=== PATIENT | male | born 1990 | race African-American/Black ===

== ENCOUNTER 2020-01-19 10:30 | Inpatient (IN) | payer MEDICAID ==
[~2020-01-19] VITALS: Ht 162.6 cm; Wt 69.9 kg
[2020-01-19] MEDS ORDERED: PIPERACILLIN/TAZ 3.375G PREMIX 50 ML IV ONE (14:00)
[2020-01-19] MEDS ORDERED: SODIUM CHLORIDE 0.9% 1000ML BAG (SEPSIS BOLUS) IV ONE (14:00)
[2020-01-19] MEDS ORDERED: VANCOMYCIN 1 G PREMIX 200 ML IV SCH ×2 (14:00→22:30)
[2020-01-19] MEDS ORDERED: MORPHINE SULFATE 4 MG/ML CPJ (NOT FOR IM USE) IV STA (14:00)
[2020-01-19] MEDS ORDERED: ONDANSETRON HCL 4MG/2ML INJ IV STA (14:00)
[2020-01-19 14:17] LABS: HEMATOCRIT. 24.6 % (42.0-52.0); HEMOGLOBIN. 8.2 g/dL (14.0-18.0); MEAN CORPUSCULAR HEMOGLOBIN 25.4 pg (28.0-32.0); MEAN CORPUSCULAR VOLUME 76.3 fL (80.0-94.0); MEAN PLATELET VOLUME 7.5 fl (7.4-10.4); PLATELET 540 x1000/uL (130-400); RED BLOOD CELL COUNT 3.22 mill/uL (4.7-6.1); RED CELL DISTRIBUTION WIDTH 23.4 % (11.6-14.6)
[2020-01-19 14:21] LABS: CHLORIDE 100 mEq/L (98-107)
[2020-01-19 14:25] LABS: ETHANOL BLOOD < 10 mg/dL
[2020-01-19 14:29] LABS: INR 1.4; PROTHROMBIN TIME 14.7 sec (9.6-11.0)
[2020-01-19 14:47] LABS: PLATELET ESTIMATE INCREASED
[2020-01-19 21:10] LABS: CLARITY URINE CLOUDY (CLEAR); COLOR URINE DARK YELLOW (YELLOW); KETONES URINE 1+ (NEGATIVE); LEUKOCYTE ESTERASE URINE 1+ (NEGATIVE); NITRITE URINE POSITIVE (NEGATIVE); OCCULT BLOOD URINE 3+ (NEGATIVE); PROTEIN URINE 1+ (NEGATIVE); SPECIFIC GRAVITY URINE 1.024 (1.005-1.030)
[2020-01-19 21:38] LABS: *AMPHETAMINES SCREEN URINE NEGATIVE (NEGATIVE); *BARBITURATES SCREEN URINE NEGATIVE (NEGATIVE); *BENZODIAZEPINES SCREEN URINE NEGATIVE (NEGATIVE); *COCAINE SCREEN URINE NEGATIVE (NEGATIVE); METHADONE URINE SCREEN NEGATIVE (NEGATIVE); OPIATES URINE SCREEN PRESUMTIVE POSITIVE (NEGATIVE); PHENCYCLIDINE URINE SCREEN NEGATIVE (NEGATIVE)
[2020-01-19 21:39] LABS: CANNABINOID URINE SCREEN PRESUMTIVE POSITIVE (NEGATIVE)
[2020-01-19 21:40] VITALS: BP 105/53
[2020-01-19 22:00] VITALS: BP 105/53
[2020-01-19] MEDS ORDERED: ONDANSETRON HCL 4MG/2ML INJ IV PRN (22:30)
[2020-01-19] MEDS ORDERED: ZOLPIDEM TARTRATE 5MG TABLET PO PRN (22:30)
[2020-01-19] MEDS ORDERED: SENNOSIDES 8.6MG TABLET PO PRN (22:30)
[2020-01-19] MEDS ORDERED: CLONIDINE 0.1MG TABLET PO PRN (22:30)
[2020-01-19] MEDS ORDERED: DIPHENHYDRAMINE 50MG/ML VIAL IV PRN (22:30)
[2020-01-19] MEDS ORDERED: ACETAMINOPHEN 325MG TABLET PO PRN ×2 (22:30)
[2020-01-19] MEDS ORDERED: MAGNESIUM/ALUMINUM HYDROXIDE/SIMETHICONE 30ML UDC PO PRN (22:30)
[2020-01-20] MEDS ORDERED: VANCOMYCIN 1250MG in DEXTROSE 5% WATER 250ML IV SCH ×2
[2020-01-20 04:00] VITALS: BP 92/44
[2020-01-20] MEDS: BACLOFEN 10MG TABLET PO SCH ×4 (05:40→21:38)
[2020-01-20 08:00] VITALS: BP 94/40
[2020-01-20] MEDS: ENOXAPARIN 40MG/0.4ML SYR SUBCUT SCH (09:00)
[2020-01-20] MEDS: PIPERACILLIN/TAZOBACTAM 3.375 G in DEXT 5% WATER 100 ML IV SCH ×2 (11:17→17:42)
[2020-01-20 12:00] VITALS: BP 87/45
[2020-01-20] MEDS: SODIUM CHLORIDE 0.9% INJ 3ML FLUSH IVF SCH ×2 (14:00→21:11)
[2020-01-20 16:00] VITALS: BP 84/43
[2020-01-20 20:00] VITALS: BP 102/42
[2020-01-20] MEDS: MEROPENEM 1,000 MG in SODIUM CHLORIDE 0.9% 100 ML IV SCH (22:53)
[2020-01-21] VITALS: BP 102/42
[2020-01-21 04:00] VITALS: BP 102/42
[2020-01-21] MEDS: MEROPENEM 1,000 MG in SODIUM CHLORIDE 0.9% 100 ML IV SCH ×3 (06:00→22:00)
[2020-01-21] MEDS: BACLOFEN 10MG TABLET PO SCH ×3 (06:00→23:48)
[2020-01-21] MEDS: SODIUM CHLORIDE 0.9% INJ 3ML FLUSH IVF SCH ×3 (07:01→22:00)
[2020-01-21] MEDS: ENOXAPARIN 40MG/0.4ML SYR SUBCUT SCH (09:00)
[2020-01-21 16:00] VITALS: BP 90/40
[2020-01-21 20:00] VITALS: BP 95/43
[2020-01-21] MEDS: HYDROCODONE/ACETAMINOPHEN 5/325MG TABLET PO PRN (23:48)
[2020-01-22] MEDS: MEROPENEM 1,000 MG in SODIUM CHLORIDE 0.9% 100 ML IV SCH ×2 (06:00→14:00)
[2020-01-22] MEDS: BACLOFEN 10MG TABLET PO SCH ×3 (06:00→21:54)
[2020-01-22] MEDS: SODIUM CHLORIDE 0.9% INJ 3ML FLUSH IVF SCH ×3 (06:00→22:00)
[2020-01-22] MEDS: ENOXAPARIN 40MG/0.4ML SYR SUBCUT SCH (09:00)
[2020-01-22] MEDS ORDERED: LEVOFLOXACIN 500MG TABLET PO NR (16:00)
[2020-01-22 20:00] VITALS: BP 101/51
[2020-01-22] MEDS: NITROFURANTOIN 100MG M/M CAPSULE PO SCH (21:55)
[2020-01-23] VITALS: BP 119/58
[2020-01-23 04:00] VITALS: BP 99/57
[2020-01-23] MEDS: HYDROCODONE/ACETAMINOPHEN 5/325MG TABLET PO PRN (05:15)
[2020-01-23] MEDS: SODIUM CHLORIDE 0.9% INJ 3ML FLUSH IVF SCH ×3 (06:00→21:38)
[2020-01-23] MEDS: BACLOFEN 10MG TABLET PO SCH ×4 (06:00→21:39)
[2020-01-23] MEDS: NITROFURANTOIN 100MG M/M CAPSULE PO SCH ×4 (09:00→21:26)
[2020-01-23] MEDS: ENOXAPARIN 40MG/0.4ML SYR SUBCUT SCH (09:00)
[2020-01-23] MEDS: LEVOFLOXACIN 250MG TABLET PO SCH ×2 (10:02→10:40)
[2020-01-24] VITALS: BP 90/49
[2020-01-24] MEDS: HYDROCODONE/ACETAMINOPHEN 5/325MG TABLET PO PRN (01:04)
[2020-01-24 04:00] VITALS: BP 85/40
[2020-01-24] MEDS: BACLOFEN 10MG TABLET PO SCH ×4 (06:00→21:26)
[2020-01-24] MEDS: NITROFURANTOIN 100MG M/M CAPSULE PO SCH ×3 (09:00→21:00)
[2020-01-24] MEDS: ENOXAPARIN 40MG/0.4ML SYR SUBCUT SCH (09:00)
[2020-01-24] MEDS: LEVOFLOXACIN 250MG TABLET PO SCH ×3 (10:51→14:35)
[2020-01-25] VITALS: BP 97/50
[2020-01-25] MEDS: IBUPROFEN 600MG TABLET PO PRN ×2 (00:24→21:58)
[2020-01-25] MEDS: BACLOFEN 10MG TABLET PO SCH ×3 (05:46→21:52)
[2020-01-25] MEDS: ENOXAPARIN 40MG/0.4ML SYR SUBCUT SCH (09:00)
[2020-01-25] MEDS: LEVOFLOXACIN 250MG TABLET PO SCH (10:48)
[2020-01-25] MEDS: NITROFURANTOIN 100MG M/M CAPSULE PO SCH ×2 (10:49→21:52)
[2020-01-25 12:00] VITALS: BP 83/41
[2020-01-25 16:00] VITALS: BP 91/57
[2020-01-25 20:00] VITALS: BP 91/50
[2020-01-26] VITALS: BP 104/52
[2020-01-26 04:00] VITALS: BP 117/52
[2020-01-26] MEDS: BACLOFEN 10MG TABLET PO SCH (06:00)
[2020-01-26] MEDS: NITROFURANTOIN 100MG M/M CAPSULE PO SCH ×2 (09:00→09:46)
[2020-01-26] MEDS: ENOXAPARIN 40MG/0.4ML SYR SUBCUT SCH (09:00)
[2020-01-26] MEDS: LEVOFLOXACIN 250MG TABLET PO SCH (10:50)
[2020-01-26 12:00] VITALS: BP 95/50
== END 2020-01-26 15:43 | disposition left against medical advice (07) | DRG 720 ==
LOC: ER 10:30 → 6EST 15:37 → EDBEDREQTM 15:56 → EDBEDREQ 15:56 → ENRESERV 20:34
PROVIDERS: ADMIT Internal Medicine; ATTEND Internal Medicine
DX: A41.9 Sepsis, unspecified organism (principal); L89.154 Pressure ulcer of sacral region, stage 4; E46 Unspecified protein-calorie malnutrition; G82.20 Paraplegia, unspecified; N39.0 Urinary tract infection, site not specified; F32.9 Major depressive disorder, single episode, unspecified; Z53.20 Procedure and treatment not carried out because of patient's decision for unspecified reasons; N31.9 Neuromuscular dysfunction of bladder, unspecified; L89.329 Pressure ulcer of left buttock, unspecified stage; L89.899 Pressure ulcer of other site, unspecified stage; Z53.29 Procedure and treatment not carried out because of patient's decision for other reasons; Z68.26 Body mass index [BMI] 26.0-26.9, adult; Z93.3 Colostomy status; Z59.0 Homelessness; Z91.19 Patient's noncompliance with other medical treatment and regimen; Z99.3 Dependence on wheelchair; Z79.899 Other long term (current) drug therapy
CPT/HCPCS: 36415; 80053; 80305; 80320; 81003; 83605; 84145; 85025; 87077; 87186; 93005; 96374; 99291; J1650; J2185; J2270; J2405; J2543; J3370; J7030; J7050; J7060; G0480

== ENCOUNTER 2020-02-07 20:07 | Inpatient (IN) | payer MEDICAID ==
[~2020-02-07] VITALS: Ht 180.3 cm; Wt 71.2 kg
[2020-02-07] MEDS ORDERED: ONDANSETRON HCL 4MG/2ML INJ IV STA (21:03)
[2020-02-07] MEDS ORDERED: KETOROLAC 30MG/ML VIAL IV STA (21:03)
[2020-02-07] MEDS ORDERED: CLINDAMYCIN 900 MG in DEXTROSE 5% WATER 50 ML IV ONE (21:15)
[2020-02-07] MEDS ORDERED: SODIUM CHLORIDE 0.9% 1000ML BAG (SEPSIS BOLUS) IV ONE (21:15)
[2020-02-07] MEDS ORDERED: CEFEPIME 1,000 MG in DEXTROSE 5% WATER 50 ML IV ONE (21:15)
[2020-02-07] MEDS ORDERED: CLINDAMYCIN 900 MG PREMIX 50 ML IV NR (21:30)
[2020-02-07] MEDS ORDERED: OLANZAPINE 10 MG/VIAL IM ONE (21:45)
[2020-02-07] MEDS ORDERED: DIPHENHYDRAMINE 50MG/ML VIAL IM ONE (23:45)
[2020-02-08] VITALS (23 sets, daily range): BP systolic 81–121; BP diastolic 39–63
[2020-02-08] MEDS ORDERED: HALOPERIDOL LACTATE 5MG/ML VIAL IM ONE ×2 (00:15→00:30)
[2020-02-08] MEDS ORDERED: LORAZEPAM 2MG/ML CPJ IV ONE (01:00)
[2020-02-08] MEDS ORDERED: LORAZEPAM 2MG/ML CPJ IV SCH (01:15)
[2020-02-08 02:08] LABS: BASOPHILS % 0.3 % (0.0-2.0); EOSINOPHILS % 0.3 % (0.0-5.0); HEMATOCRIT. 22.9 % (42.0-52.0); HEMOGLOBIN. 7.2 g/dL (14.0-18.0); LYMPHOCYTES % 12.8 % (20.0-50.0); MEAN CORPUSCULAR HEMOGLOBIN 23.5 pg (28.0-32.0); MEAN CORPUSCULAR VOLUME 75.1 fL (80.0-94.0); MEAN PLATELET VOLUME 6.5 fl (7.4-10.4); MONOCYTES % 7.9 % (2.0-8.0); NEUTROPHILS % 78.7 % (40.0-76.0); PLATELET 545 x1000/uL (130-400); RED BLOOD CELL COUNT 3.05 mill/uL (4.7-6.1); RED CELL DISTRIBUTION WIDTH 26.3 % (11.6-14.6)
[2020-02-08 02:14] LABS: CHLORIDE 99 mEq/L (98-107)
[2020-02-08 02:30] LABS: INR 1.5; PROTHROMBIN TIME 15.3 sec (9.6-11.0)
[2020-02-08 04:01] LABS: PLATELET ESTIMATE INCREASED
[2020-02-08] MEDS ORDERED: PIPERACILLIN/TAZOBACTAM 3.375 G in DEXT 5% WATER 100 ML IV SCH (06:00)
[2020-02-08] MEDS ORDERED: PIPERACILLIN/TAZOBACTAM 3.375 G/VIAL IV SCH (06:00)
[2020-02-08] MEDS ORDERED: SODIUM CHLORIDE 0.9% 1,000 ML IV SCH ×2 (08:00→09:00)
[2020-02-08] MEDS: MIDODRINE HCL 5MG TABLET PO SCH ×3 (09:00→17:00)
[2020-02-08] MEDS: OMEPRAZOLE 20MG CAPSULE EXTENDED RELEASE PO SCH (09:00)
[2020-02-08] MEDS: MEROPENEM 1,000 MG in SODIUM CHLORIDE 0.9% 100 ML IV SCH ×2 (11:43→21:28)
[2020-02-08] MEDS ORDERED: LIDOCAINE HCL 1% 20ML VIAL (Pyxis) INJ ONE (13:13)
[2020-02-08] MEDS ORDERED: SODIUM BICARBONATE 4% (2.4MEQ) 5ML VIAL IV ONE (13:13)
[2020-02-08 14:24] LABS: CLARITY URINE TURBID (CLEAR); COLOR URINE YELLOW (YELLOW); KETONES URINE NEGATIVE (NEGATIVE); LEUKOCYTE ESTERASE URINE 3+ (NEGATIVE); NITRITE URINE POSITIVE (NEGATIVE); OCCULT BLOOD URINE 3+ (NEGATIVE); PROTEIN URINE TRACE (NEGATIVE); SPECIFIC GRAVITY URINE 1.016 (1.005-1.030); UROBILINOGEN URINE 0.2 E.U./dL (0.2-1.0)
[2020-02-08 15:12] LABS: CHLORIDE 106 mEq/L (98-107)
[2020-02-08 15:15] LABS: BASOPHILS % 0.5 % (0.0-2.0); EOSINOPHILS % 1.4 % (0.0-5.0); LYMPHOCYTES % 11.2 % (20.0-50.0); MEAN CORPUSCULAR HEMOGLOBIN 23.9 pg (28.0-32.0); MEAN CORPUSCULAR VOLUME 75.2 fL (80.0-94.0); MEAN PLATELET VOLUME 6.8 fl (7.4-10.4); NEUTROPHILS % 80.9 % (40.0-76.0); PLATELET 471 x1000/uL (130-400); RED BLOOD CELL COUNT 2.54 mill/uL (4.7-6.1); RED CELL DISTRIBUTION WIDTH 25.6 % (11.6-14.6)
[2020-02-08] MEDS: SODIUM CHLORIDE 0.9% 1,000 ML IV SCH ×2 (15:15→19:14)
[2020-02-08 15:28] LABS: HEMATOCRIT. 19.1 % (42.0-52.0); HEMOGLOBIN. 6.1 g/dL (14.0-18.0)
[2020-02-09] VITALS (12 sets, daily range): BP systolic 102–118; BP diastolic 43–76
[2020-02-09] MEDS: SODIUM CHLORIDE 0.9% 1,000 ML IV SCH ×2 (01:15→11:15)
[2020-02-09] MEDS: MEROPENEM 1,000 MG in SODIUM CHLORIDE 0.9% 100 ML IV SCH ×3 (02:15→18:00)
[2020-02-09] MEDS: HYDROCODONE/ACETAMINOPHEN 10/325MG TABLET PO PRN ×3 (03:37→18:33)
[2020-02-09] MEDS: OMEPRAZOLE 20MG CAPSULE EXTENDED RELEASE PO SCH (06:30)
[2020-02-09 06:55] LABS: HEMATOCRIT 25.1 % (42.0-52.0); HEMOGLOBIN 8.3 g/dL (14.0-18.0)
[2020-02-09] MEDS: MIDODRINE HCL 5MG TABLET PO SCH ×3 (08:19→18:11)
[2020-02-09] MEDS: SODIUM HYPOCHLORITE 0.125% 473ML SOLUTION TOP SCH (15:29)
[2020-02-09] MEDS ORDERED: ACETAMINOPHEN 325MG TABLET PO PRN (18:30)
[2020-02-09] MEDS: AMOXICILLIN/POTASSIUM CLAVULANATE 875/125MG TAB PO SCH (20:45)
[2020-02-09] MEDS: NITROFURANTOIN 100MG M/M CAPSULE PO SCH (20:45)
[2020-02-09] MEDS: FAMOTIDINE 20MG TABLET PO SCH (20:45)
[2020-02-10] VITALS: BP 121/77
[2020-02-10 02:00] VITALS: BP 104/57
[2020-02-10] MEDS: HYDROCODONE/ACETAMINOPHEN 10/325MG TABLET PO PRN ×2 (02:10→21:47)
[2020-02-10 06:00] VITALS: BP 102/61
[2020-02-10 08:00] VITALS: BP 96/56
[2020-02-10] MEDS: AMOXICILLIN/POTASSIUM CLAVULANATE 875/125MG TAB PO SCH ×2 (08:57→20:24)
[2020-02-10] MEDS: NITROFURANTOIN 100MG M/M CAPSULE PO SCH ×2 (08:57→20:24)
[2020-02-10] MEDS: FAMOTIDINE 20MG TABLET PO SCH ×2 (08:57→20:24)
[2020-02-10] MEDS: MIDODRINE HCL 5MG TABLET PO SCH ×3 (08:59→17:00)
[2020-02-10] MEDS: SODIUM HYPOCHLORITE 0.125% 473ML SOLUTION TOP SCH (09:00)
[2020-02-10 11:26] LABS: BASOPHILS % 0.7 % (0.0-2.0); HEMATOCRIT. 27.4 % (42.0-52.0); HEMOGLOBIN. 8.5 g/dL (14.0-18.0); LYMPHOCYTES % 24.8 % (20.0-50.0); MEAN CORPUSCULAR HEMOGLOBIN 24.9 pg (28.0-32.0); MEAN CORPUSCULAR VOLUME 79.7 fL (80.0-94.0); MEAN PLATELET VOLUME 7.1 fl (7.4-10.4); MONOCYTES % 8.1 % (2.0-8.0); NEUTROPHILS % 62.4 % (40.0-76.0); PLATELET 575 x1000/uL (130-400); RED BLOOD CELL COUNT 3.44 mill/uL (4.7-6.1); RED CELL DISTRIBUTION WIDTH 24.8 % (11.6-14.6)
[2020-02-10] MEDS ORDERED: NITR100C11 PO (11:27)
[2020-02-10] MEDS ORDERED: MIDO5TAB4 PO (11:27)
[2020-02-10] MEDS ORDERED: AMOX1TAB16 PO (11:27)
[2020-02-10 11:28] LABS: CHLORIDE 107 mEq/L (98-107)
[2020-02-10 12:00] VITALS: BP 93/45
[2020-02-10] MEDS: SODIUM CHLORIDE 0.9% 1,000 ML IV SCH (17:15)
[2020-02-10 20:00] VITALS: BP 107/50
[2020-02-11] VITALS: BP 93/29
[2020-02-11] MEDS: SODIUM CHLORIDE 0.9% 1,000 ML IV SCH (03:15)
[2020-02-11 04:00] VITALS: BP 95/45
[2020-02-11 08:00] VITALS: BP 89/54
[2020-02-11] MEDS: SODIUM HYPOCHLORITE 0.125% 473ML SOLUTION TOP SCH (09:00)
[2020-02-11] MEDS: FAMOTIDINE 20MG TABLET PO SCH ×2 (09:00→21:12)
[2020-02-11] MEDS: MIDODRINE HCL 5MG TABLET PO SCH ×3 (09:00→17:00)
[2020-02-11] MEDS: AMOXICILLIN/POTASSIUM CLAVULANATE 875/125MG TAB PO SCH ×2 (09:00→21:12)
[2020-02-11] MEDS: NITROFURANTOIN 100MG M/M CAPSULE PO SCH ×2 (09:00→21:12)
[2020-02-11 12:00] VITALS: BP 99/47
[2020-02-11 16:00] VITALS: BP 96/50
[2020-02-11 20:00] VITALS: BP 104/59
[2020-02-12] VITALS: BP 100/60
[2020-02-12] MEDS: HYDROCODONE/ACETAMINOPHEN 10/325MG TABLET PO PRN ×2 (01:04→09:54)
[2020-02-12 04:00] VITALS: BP 105/65
[2020-02-12 08:00] VITALS: BP 103/54
[2020-02-12] MEDS: FAMOTIDINE 20MG TABLET PO SCH ×2 (09:07→21:00)
[2020-02-12] MEDS: AMOXICILLIN/POTASSIUM CLAVULANATE 875/125MG TAB PO SCH ×2 (09:07→21:00)
[2020-02-12] MEDS: NITROFURANTOIN 100MG M/M CAPSULE PO SCH ×2 (09:07→21:00)
[2020-02-12] MEDS: MIDODRINE HCL 5MG TABLET PO SCH ×3 (09:08→17:23)
[2020-02-12] MEDS: SODIUM HYPOCHLORITE 0.125% 473ML SOLUTION TOP SCH (09:08)
[2020-02-12 12:00] VITALS: BP 132/56
[2020-02-12 16:00] VITALS: BP 80/36
[2020-02-13] MEDS: NITROFURANTOIN 100MG M/M CAPSULE PO SCH ×2 (08:52→21:01)
[2020-02-13] MEDS: FAMOTIDINE 20MG TABLET PO SCH ×2 (08:52→21:01)
[2020-02-13] MEDS: MIDODRINE HCL 5MG TABLET PO SCH ×3 (08:52→17:48)
[2020-02-13] MEDS: AMOXICILLIN/POTASSIUM CLAVULANATE 875/125MG TAB PO SCH ×2 (08:52→21:00)
[2020-02-13] MEDS: SODIUM HYPOCHLORITE 0.125% 473ML SOLUTION TOP SCH (09:02)
[2020-02-13] MEDS: SODIUM CHLORIDE 0.9% 1,000 ML IV SCH (15:15)
[2020-02-13 16:00] VITALS: BP 105/62
[2020-02-13 16:49] LABS: CHLORIDE 102 mEq/L (98-107)
[2020-02-13 17:03] LABS: BASOPHILS % 0.6 % (0.0-2.0); EOSINOPHILS % 2.9 % (0.0-5.0); HEMATOCRIT. 29.5 % (42.0-52.0); HEMOGLOBIN. 9.7 g/dL (14.0-18.0); MEAN CORPUSCULAR HEMOGLOBIN 25.9 pg (28.0-32.0); MEAN CORPUSCULAR VOLUME 79.1 fL (80.0-94.0); MEAN PLATELET VOLUME 6.9 fl (7.4-10.4); MONOCYTES % 7.6 % (2.0-8.0); NEUTROPHILS % 72.9 % (40.0-76.0); PLATELET 673 x1000/uL (130-400); RED BLOOD CELL COUNT 3.73 mill/uL (4.7-6.1); RED CELL DISTRIBUTION WIDTH 25.7 % (11.6-14.6)
[2020-02-13 20:00] VITALS: BP 114/66
[2020-02-13] MEDS: HYDROCODONE/ACETAMINOPHEN 10/325MG TABLET PO PRN (21:02)
[2020-02-14] VITALS: BP 96/45
[2020-02-14 04:00] VITALS: BP 86/43
[2020-02-14] MEDS: MIDODRINE HCL 5MG TABLET PO SCH ×3 (09:02→17:29)
[2020-02-14] MEDS: FAMOTIDINE 20MG TABLET PO SCH ×2 (09:02→20:46)
[2020-02-14] MEDS: AMOXICILLIN/POTASSIUM CLAVULANATE 875/125MG TAB PO SCH ×2 (09:02→20:44)
[2020-02-14] MEDS: NITROFURANTOIN 100MG M/M CAPSULE PO SCH ×2 (09:02→20:44)
[2020-02-14] MEDS: SODIUM HYPOCHLORITE 0.125% 473ML SOLUTION TOP SCH (09:25)
[2020-02-14] MEDS: SODIUM CHLORIDE 0.9% 1,000 ML IV SCH (11:15)
[2020-02-14] MEDS: HYDROCODONE/ACETAMINOPHEN 10/325MG TABLET PO PRN ×2 (12:59→20:44)
[2020-02-14 16:00] VITALS: BP 93/47
[2020-02-14] MEDS ORDERED: ONDANSETRON 4MG ODT PO PRN (17:45)
[2020-02-14 20:00] VITALS: BP 100/51
[2020-02-15] VITALS: BP 97/51
[2020-02-15] MEDS: HYDROCODONE/ACETAMINOPHEN 10/325MG TABLET PO PRN ×2 (03:37→18:47)
[2020-02-15 04:00] VITALS: BP 120/62
[2020-02-15] MEDS: SODIUM CHLORIDE 0.9% 1,000 ML IV SCH ×2 (07:15→17:15)
[2020-02-15 08:00] VITALS: BP 101/54
[2020-02-15] MEDS: FAMOTIDINE 20MG TABLET PO SCH ×2 (08:46→21:00)
[2020-02-15] MEDS: MIDODRINE HCL 5MG TABLET PO SCH ×3 (08:46→17:00)
[2020-02-15] MEDS: SODIUM HYPOCHLORITE 0.125% 473ML SOLUTION TOP SCH (08:46)
[2020-02-15 16:00] VITALS: BP 103/54
[2020-02-15 20:00] VITALS: BP 101/44
[2020-02-15] MEDS: AMOXICILLIN/POTASSIUM CLAVULANATE 875/125MG TAB PO SCH (22:00)
[2020-02-16] VITALS: BP 91/46
[2020-02-16] MEDS: HYDROCODONE/ACETAMINOPHEN 10/325MG TABLET PO PRN ×2 (02:32→18:21)
[2020-02-16] MEDS: SODIUM CHLORIDE 0.9% 1,000 ML IV SCH ×2 (03:15→12:27)
[2020-02-16 04:00] VITALS: BP 109/56
[2020-02-16] MEDS: AMOXICILLIN/POTASSIUM CLAVULANATE 875/125MG TAB PO SCH (09:00)
[2020-02-16] MEDS: SODIUM HYPOCHLORITE 0.125% 473ML SOLUTION TOP SCH (09:00)
[2020-02-16] MEDS: MIDODRINE HCL 5MG TABLET PO SCH ×3 (09:00→16:31)
[2020-02-16] MEDS: FAMOTIDINE 20MG TABLET PO SCH (09:00)
[2020-02-16 16:00] VITALS: BP 124/67
[2020-02-16] MEDS ORDERED: ENOXAPARIN 80MG/0.8ML SYR SUBCUT SCH (16:00)
[2020-02-16 17:44] VITALS: BP 124/67
[2020-02-16 18:21] VITALS: BP 124/67
[2020-02-16 19:16] LABS: TOTAL IRON BINDING CAPACITY 180 ug/dL (250-450)
[2020-02-17] MEDS ORDERED: ASCORBIC ACID 250 MG TABLET PO SCH (09:00)
[2020-02-17] MEDS ORDERED: ZINC SULFATE 220 MG ( 50 ) CAPSULE PO SCH (09:00)
== END 2020-02-16 18:45 | disposition home or self-care (01) | DRG 720 ==
LOC: ER 20:07 → 5EST 02-08 00:20 → EDBEDREQDT 02-08 00:37 → EDBEDREQ 02-08 00:37 → EDBEDREQTM 02-08 00:37 → ENRESERV 02-08 02:44 → 6EST 02-10 12:23
PROVIDERS: ADMIT Internal Medicine; ATTEND Internal Medicine
PROC: 30233N1 Transfusion of Nonautologous Red Blood Cells into Peripheral Vein, Percutaneous Approach (ICD-10-PCS; principal; 2020-02-08)
PROC: 05HY33Z Insertion of Infusion Device into Upper Vein, Percutaneous Approach (ICD-10-PCS; 2020-02-08)
PROC: B54MZZA Ultrasonography of Right Upper Extremity Veins, Guidance (ICD-10-PCS; 2020-02-08)
DX: A41.9 Sepsis, unspecified organism (principal); R65.21 Severe sepsis with septic shock; E43 Unspecified severe protein-calorie malnutrition; N39.0 Urinary tract infection, site not specified; G82.20 Paraplegia, unspecified; L89.223 Pressure ulcer of left hip, stage 3; L89.214 Pressure ulcer of right hip, stage 4; D64.9 Anemia, unspecified; F19.10 Other psychoactive substance abuse, uncomplicated; L89.154 Pressure ulcer of sacral region, stage 4; Z53.29 Procedure and treatment not carried out because of patient's decision for other reasons; E87.1 Hypo-osmolality and hyponatremia; Z59.0 Homelessness; Z93.59 Other cystostomy status; Z99.3 Dependence on wheelchair; Z68.21 Body mass index [BMI] 21.0-21.9, adult; Z88.1 Allergy status to other antibiotic agents; Z93.3 Colostomy status
CPT/HCPCS: 36415; 71045; 76937; 80048; 80053; 81003; 82040; 82728; 83540; 83550; 83605; 84134; 84145; 84484; 85014; 85018; 85025; 86850; 86900; 86920; 93005; 93970; 99291; C1725; J0692; J1200; J1630; J1885; J2060; J2185; J2543; J3490; J7030; J7050; J7060; P9016; P9021; Q0162